=== PATIENT | female | born 1985 | race African-American/Black ===

== ENCOUNTER 2016-10-28 00:50 | Emergency (ER) | payer OTHER ==
[~2016-10-28] VITALS: Ht 170.2 cm; Wt 86.2 kg
[2016-10-28 01:16] LABS: ABSOLUTE NEUTROPHILS 8.3 thou/uL (1.4-8.2); BASOPHILS 0.7 % (0.0-2.0); EOSINOPHILS 3.8 % (0.0-3.0); HEMATOCRIT 43.4 % (37.0-47.0); HEMOGLOBIN 14.4 gm/dL (12.0-15.0); LYMPHOCYTES 14.9 % (24.0-44.0); MCHC 33.3 % (28.0-37.0); MCV 86.9 fL (80.0-100.0); MONOCYTES 7.9 % (1.0-8.0); PLATELET COUNT 306 thou/uL (150-400); POLYS 72.7 % (36.0-66.0); RBC 4.99 mil/uL (4.20-5.00); WBC 11.4 thou/uL (4.0-11.0)
[2016-10-28 01:17] LABS: MANUAL DIFF NO
[2016-10-28 01:23] LABS: CALCIUM 9.3 mg/dL (8.5-10.1); CREATININE 0.9 mg/dL (0.6-1.3); POTASSIUM 3.5 mmol/L (3.5-5.1)
[2016-10-28 01:29] LABS: ALBUMIN 4.4 g/dL (3.4-5.0); TOTAL BILIRUBIN 0.6 mg/dL (<0.1-1.0); TOTAL PROTEIN 8.1 g/dL (6.4-8.2)
[2016-10-28 02:30] LABS: URINE BILIRUBIN NEGATIVE (Negative); URINE BLOOD NEGATIVE (Negative); URINE COLOR YELLOW; URINE GLUCOSE-RANDOM* NEGATIVE (Negative); URINE KETONES NEGATIVE (Negative); URINE LEUKOCYTES-REFLEX NEGATIVE (Negative); URINE PROTEIN (DIPSTICK) TRACE (Negative); URINE UROBILINOGEN 0.2 E.U./dl (0.2-1.0)
[2016-10-28] MEDS ORDERED: NORCO 5-325 TA1 EACH PO (02:50)
[2016-10-28] MEDS ORDERED: ZOFRAN ODT4 MG PO (02:50)
[2016-10-28 03:18] VITALS: BP 116/58
== END 2016-10-28 03:19 | disposition home or self-care (01) ==
LOC: ER 00:50
PROVIDERS: Emergency Medicine
DX: K80.80 Other cholelithiasis without obstruction (principal); R19.7 Diarrhea, unspecified

== ENCOUNTER 2021-02-10 13:54 | Emergency (ER) | payer BC ==
[~2021-02-10] VITALS: Ht 170.2 cm; Wt 108.9 kg
[~2021-02-10 13:54] MED LIST: NORCO 5-325 TA1 EACH PO; ZOFRAN ODT4 MG PO
[2021-02-10 14:47] LABS: HEMOGLOBIN 14.4 gm/dL (12.0-15.0); MCH 29.7 pg (26.0-34.0); MCHC 34.3 g/dL (28.0-37.0); MCV 86.6 fL (80.0-100.0); PLATELET COUNT 209 thou/uL (150-400); RBC 4.85 mil/uL (4.20-5.00); RDW 13.4 % (10.5-14.5); WBC 2.8 thou/uL (4.0-11.0)
[2021-02-10 14:49] LABS: CALCIUM 8.9 mg/dL (8.5-10.1); CREATININE 1.1 mg/dL (0.6-1.0); POTASSIUM 3.8 mmol/L (3.5-5.1)
[2021-02-10 14:56] LABS: ALBUMIN 3.9 g/dL (3.4-5.0); MAGNESIUM 2.2 mg/dL (1.8-2.4); TOTAL BILIRUBIN 0.5 mg/dL (0.2-1.0); TOTAL PROTEIN 8.1 g/dL (6.4-8.2)
[2021-02-10 15:53] LABS: ABSOLUTE NEUTROPHILS 1.5 thou/uL (1.4-8.2); METAMYELOCYTES 2 %
[2021-02-10] MEDS ORDERED: ONDANSETRON HCL4 M2 PO (16:15)
[2021-02-10 18:08] VITALS: BP 138/82
[2021-02-11 10:06] LABS: HEMATOLOGY COMMENTS Note: (()); HEMOGLOBIN 14.4 g/dL (11.1-15.9)
== END 2021-02-10 18:13 | disposition home or self-care (01) ==
LOC: ER 13:54
PROVIDERS: Physician Assistant
DX: U07.1 COVID-19 (principal); R11.2 Nausea with vomiting, unspecified; R19.7 Diarrhea, unspecified

== ENCOUNTER 2021-02-12 17:30 | Emergency (ER) | payer OTHER ==
[~2021-02-12] VITALS: Ht 170.2 cm; Wt 108.9 kg
[~2021-02-12 17:30] MED LIST changes: +ONDANSETRON HCL4 M2 PO
[2021-02-12 18:08] LABS: ABSOLUTE NEUTROPHILS 2.1 thou/uL (1.4-8.2); BASOPHILS 0.5 % (0.0-2.0); EOSINOPHILS 0.6 % (0.0-3.0); HEMATOCRIT 41.9 % (37.0-47.0); HEMOGLOBIN 14.3 gm/dL (12.0-15.0); LYMPHOCYTES 31.9 % (24.0-44.0); MCH 29.3 pg (26.0-34.0); MCV 86.3 fL (80.0-100.0); MONOCYTES 10.2 % (1.0-8.0); PLATELET COUNT 186 thou/uL (150-400); POLYS 56.8 % (36.0-66.0); RBC 4.86 mil/uL (4.20-5.00); RDW 13.4 % (10.5-14.5); WBC 3.6 thou/uL (4.0-11.0)
[2021-02-12 18:17] LABS: CREATININE 1.1 mg/dL (0.6-1.0); POTASSIUM 3.5 mmol/L (3.5-5.1)
[2021-02-12 18:24] LABS: ALBUMIN 3.7 g/dL (3.4-5.0); TOTAL BILIRUBIN 0.9 mg/dL (0.2-1.0); TOTAL PROTEIN 7.9 g/dL (6.4-8.2)
[2021-02-12] MEDS ORDERED: PHENERGAN 25 MG25 M1 PO (19:31)
[2021-02-12] MEDS ORDERED: BENTYL 10 MG CA10 MG PO (19:31)
[2021-02-12 19:34] VITALS: BP 115/56
== END 2021-02-12 19:40 | disposition home or self-care (01) ==
LOC: ER 17:30
PROVIDERS: Emergency Medicine
DX: U07.1 COVID-19 (principal); R11.2 Nausea with vomiting, unspecified; R19.7 Diarrhea, unspecified; Z79.899 Other long term (current) drug therapy